=== PATIENT | female | born 1995 | race Asian ===

== ENCOUNTER → 2019-06-15 | Outpatient (CLI) | payer OTHER | END | disposition home or self-care (01) | LOC: MRI 13:06 | PROVIDERS: ATTEND Emergency Medicine | DX: M51.36 Other intervertebral disc degeneration, lumbar region (principal); M51.26 Other intervertebral disc displacement, lumbar region | CPT/HCPCS: 72148 ==

== ENCOUNTER → 2020-04-26 | Outpatient (CLI) | payer OTHER | END | disposition home or self-care (01) | LOC: MRI 07:37 | PROVIDERS: ATTEND Family Medicine Adult Medicine | DX: S33.5XXA Sprain of ligaments of lumbar spine, initial encounter (principal); M48.061 Spinal stenosis, lumbar region without neurogenic claudication; X58.XXXA Exposure to other specified factors, initial encounter; Y93.89 Activity, other specified; Y92.89 Other specified places as the place of occurrence of the external cause; Y99.8 Other external cause status | CPT/HCPCS: 72148 ==

== ENCOUNTER → 2020-07-31 | Outpatient (CLI) | payer BC ==
[2020-07-31 09:28] LABS: BASOPHILS % 0.5 % (0.0-2.0); EOSINOPHILS % 1.8 % (0.0-5.0); HEMATOCRIT. 36.1 % (36.0-48.0); HEMOGLOBIN. 12.3 g/dL (12.0-16.0); LYMPHOCYTES % 22.8 % (20.0-50.0); MEAN CORPUSCULAR VOLUME 91.1 fL (81.0-99.0); MEAN PLATELET VOLUME 8.5 fl (7.4-10.4); MONOCYTES % 6.1 % (2.0-8.0); NEUTROPHILS % 68.8 % (40.0-76.0); PLATELET 175 x1000/uL (130-400); RED BLOOD CELL COUNT 3.96 mill/uL (4.2-5.4); RED CELL DISTRIBUTION WIDTH 12.5 % (11.6-14.6)
[2020-07-31 09:43] LABS: CHLORIDE 108 mEq/L (98-107)
[2020-07-31 09:50] LABS: LDL CHOLESTEROL 131 mg/dL (5-100)
[2020-07-31 09:51] LABS: HDL CHOLESTEROL 57 mg/dL (40-59)
[2020-08-04 13:07] LABS: 25-HYDROXY VITAMIN D3 19 ng/mL (.)
== END | disposition home or self-care (01) ==
LOC: LAB 07-30 10:30
PROVIDERS: ATTEND Family Medicine
DX: Z00.00 Encounter for general adult medical examination without abnormal findings (principal)
CPT/HCPCS: 36415; 80053; 80061; 82306; 83036; 84443; 84550; 85025